=== PATIENT | female | born 1940 | race Caucasian/White ===

== ENCOUNTER 2020-05-07 11:57 | Inpatient (IN) | payer MEDICARE ==
[2020-05-07] MEDS ORDERED: PRINIVIL20 MG PO (12:15)
[2020-05-07] MEDS ORDERED: AMLODIPINE BESY10 MG PO (12:15)
[2020-05-07] MEDS ORDERED: OMEGA-31000 MG PO (12:15)
[2020-05-07] MEDS ORDERED: PIOGLITAZONE HC45 MG PO (12:15)
[2020-05-07] MEDS ORDERED: HYDROCHLOROTHIA25 MG PO (12:15)
[2020-05-07] MEDS ORDERED: MULTAQ 400MG T400 MG PO (12:15)
[2020-05-07 12:37] LABS: BASOPHILS % 0.5 % (0.0-1.0); EOSINOPHILS # (AUTO) 0.1 (0.0-0.4); EOSINOPHILS % 0.8 % (0.0-6.0); HEMATOCRIT 32.2 % (34.2-44.1); HEMOGLOBIN 10.1 g/dL (12.0-16.0); LYMPHOCYTES # (AUTO) 3.2 (1.0-3.2); LYMPHOCYTES % 47.9 % (18.0-39.1); MEAN CORPUSCULAR HGB CONC 31.4 g/dL (31-35); MEAN CORPUSCULAR VOLUME 92.5 fL (81-99); MONOCYTES # (AUTO) 0.5 (0.2-0.8); MONOCYTES % 6.9 % (4.4-11.3); NEUTROPHILS # (AUTO) 2.9 (2.1-6.9); NEUTROPHILS % 43.7 % (38.7-80.0); PLATELET COUNT 229 x10e3/uL (140-360); RED BLOOD COUNT 3.48 x10e6/uL (3.6-5.1); RED CELL DISTRIBUTION WIDTH 13.7 % (11.7-14.4)
[2020-05-07 12:59] LABS: ALBUMIN 3.4 g/dL (3.5-5.0); ALBUMIN/GLOBULIN RATIO 1.1 (0.8-2.0); ANION GAP 14.5 mmol/L (8-16); CALCIUM 9.1 mg/dL (8.4-10.2); CREATININE, SERUM 1.26 mg/dL (0.57-1.11); POTASSIUM 3.5 mmol/L (3.5-5.1)
[2020-05-07 13:06] LABS: CREATINE KINASE MB 1.5 ng/mL (0-5.0)
--- NOTE | 2020-05-07 13:17 | Diagnostic Imaging Report ---
Examination: CT head without contrast Clinical Indication: ^Y ^Weakness ^[id number] ^1240. Technique: Transaxial noncontrast images from the skull base through the vertex were obtained. Sagittal and coronal reformatted images were done. Dose modulation, iterative reconstruction, and/or weight based adjustment of the mA/kV was utilized to reduce the radiation dose to as low as reasonably achievable. Comparison: None. Findings: Scalp: No abnormalities. Bones: Intact. No fractures. No blastic or lytic lesions. Brain sulci: Moderate generalized volume loss for patient's age. Ventricles: Ex vacuo dilatation. No hydrocephalus. Extra-axial space: No abnormalities. Parenchyma: There are patchy areas of low-attenuation within subcortical and periventricular white matter, nonspecific, but could represent microvascular ischemic disease. No masses, hemorrhage, or acute or chronic cortical based vascular insults. Suprasellar region: No abnormalities. Craniocervical junction: The foramen magnum is patent. No Chiari one malformation. Incidental findings: Atherosclerotic calcification of the cavernous and supraclinoid internal carotid and V4 segments of the bilateral vertebral arteries. Impression: 1. No acute intracranial finding. 2. Generalized volume loss and chronic microvascular ischemic change. Signed by: Dr. Jayda Mead M.D. on 05/07/2020 1:14 PM
--- NOTE | 2020-05-07 13:35 | Emergency Department Note ---
History of Present Illnes History of Present Illness Chief Complaint: Neurological History of Present Illness This is a 79 year old female arrives to the ED after her assisted living facility noted left-sided upper and lower extremity weakness and patient difficulty ambulating. Patient with advanced dementia and history is limited. Son and daughter at bedside attests to left-sided weakness as well.. Chief Complaint Comment PATIENT IN FROM THE [place] FOR LEFT SIDED WEAKNESS; PER SON, PATIENT WOKE UP WITH THE LEFT SIDED WEAKNESS; STATES LAST SEEN NORMAL YESTERDAY, UNKNOWN ONSET. PATIENT WITH HISTORY OF DEMENTIA Historian: Patient, Family Member Arrival Mode: Car Onset (how long ago): hour(s) Severity: mild Onset quality: sudden Duration (how long): hour(s) Timing of current episode: unable to specify Progression: resolved Chronicity: new Context: Denies recent illness Relieving factors: none Exacerbating factors: none Associated symptoms: Reports denies other symptoms, Reports weakness; Denies fever/chills, Denies headaches, Denies loss of appetite, Denies malaise, Denies nausea/vomiting Past Medical/Family History Physician Review I have reviewed the patient's past medical and family history. Any updates have been documented here. Past Medical History Recent Fever: No Clinical Suspicion of Infectio: No New/Unexplained Change in Ment: No Past Medical History: Hypertension, Diabetes, Cancer, Other Mental Illness, Hyperlipedemia Other Medical History: DEMENTIA BREAST CANCER Past Surgical History: CABG Social History Smoking Cessation: Never Smoker Counseling Performed: No Alcohol Use: None Any Illegal Drug Use: No Review of Systems Review of Systems Constitutional: Reports no symptoms EENTM: Reports no symptoms Cardiovascular: Reports no symptoms Respiratory: Reports no symptoms Gastrointestinal: Reports no symptoms Genitourinary: Reports no symptoms Musculoskeletal: Reports no symptoms Integumentary: Reports no symptoms Neurological: Reports as per HPI, Reports weakness Psychological: Reports no symptoms Endocrine: Reports no symptoms Hematological/Lymphatic: Reports no symptoms Physical Exam Related Data Allergies: Coded Allergies: No Known Allergies (Unverified , 05/07/20) Triage Vital Signs Vital Signs Date Time Temp Pulse Resp B/P (MAP) Pulse Ox O2 Delivery O2 Flow Rate FiO2 05/07/20 12:03 98.1 70 20 208/68 98 Room Air Vital signs reviewed: Yes Physical Exam CONSTITUTIONAL Constitutional: Present well-developed, Present well-nourished HENT HENT: Present normocephalic, Present atraumatic, Present oropharynx clear/moist, Present nose normal HENT L/R: Present left ext ear normal, Present right ext ear normal EYES Eyes: Reports PERRL, Reports conjunctivae normal NECK Neck: Present ROM normal PULMONARY Pulmonary: Present effort normal, Present breath sounds normal CARDIOVASCULAR Cardiovascular: Present regular rhythm, Present heart sounds normal, Present capillary refill normal, Present normal rate GASTROINTESTINAL Abdominal: Present soft, Present nontender, Present bowel sounds normal GENITOURINARY Genitourinary: Present exam deferred SKIN Skin: Present warm, Present dry MUSCULOSKELETAL Musculoskeletal: Present ROM normal NEUROLOGICAL Neurological: Present alert, Present no gross motor or sensory deficits PSYCHOLOGICAL Psychological: Present mood/affect normal, Present judgement normal Results Laboratory Result Diagram: 05/07/20 1224 05/07/20 1224 Laboratory Laboratory Tests Test 05/07/20 12:24 White Blood Count 6.66 x10e3/uL (4.8-10.8) Red Blood Count 3.48 x10e6/uL (3.6-5.1) Hemoglobin 10.1 g/dL (12.0-16.0) Hematocrit 32.2 % (34.2-44.1) Mean Corpuscular Volume 92.5 fL (81-99) Mean Corpuscular Hemoglobin 29.0 pg (28-32) Mean Corpuscular Hemoglobin Concent 31.4 g/dL (31-35) Red Cell Distribution Width 13.7 % (11.7-14.4) Platelet Count 229 x10e3/uL (140-360) Neutrophils (%) (Auto) 43.7 % (38.7-80.0) Lymphocytes (%) (Auto) 47.9 % (18.0-39.1) Monocytes (%) (Auto) 6.9 % (4.4-11.3) Eosinophils (%) (Auto) 0.8 % (0.0-6.0) Basophils (%) (Auto) 0.5 % (0.0-1.0) Neutrophils # (Auto) 2.9 (2.1-6.9) Lymphocytes # (Auto) 3.2 (1.0-3.2) Monocytes # (Auto) 0.5 (0.2-0.8) Eosinophils # (Auto) 0.1 (0.0-0.4) Basophils # (Auto) 0.0 (0.0-0.1) Absolute Immature Granulocyte (auto 0.01 x10e3/uL (0-0.1) Sodium Level 143 mmol/L (136-145) Potassium Level 3.5 mmol/L (3.5-5.1) Chloride Level 103 mmol/L (98-107) Carbon Dioxide Level 29 mmol/L (22-29) Anion Gap 14.5 mmol/L (8-16) Blood Urea Nitrogen 35 mg/dL (7-26) Creatinine 1.26 mg/dL (0.57-1.11) Estimat Glomerular Filtration Rate 41 ML/MIN (60-) BUN/Creatinine Ratio 28 (6-25) Glucose Level 114 mg/dL (74-118) Calcium Level 9.1 mg/dL (8.4-10.2) Total Bilirubin 0.2 mg/dL (0.2-1.2) Aspartate Amino Transf (AST/SGOT) 16 IU/L (5-34) Alanine Aminotransferase (ALT/SGPT) 9 IU/L (0-55) Alkaline Phosphatase 30 IU/L (40-150) Creatine Kinase 123 IU/L (29-168) Creatine Kinase MB 1.50 ng/mL (0-5.0) Troponin I 0.150 ng/mL (0-0.300) Total Protein 6.4 g/dL (6.5-8.1) Albumin 3.4 g/dL (3.5-5.0) Globulin 3.0 g/dL (2.3-3.5) Albumin/Globulin Ratio 1.1 (0.8-2.0) Lab results reviewed: Yes Imaging Imaging results reviewed: Yes Impressions Impression: 1. No acute intracranial finding. 2. Generalized volume loss and chronic microvascular ischemic change. Signed by: Dr. Jayda Mead M.D. on 05/07/2020 1:14 PM Clinical Decision Tools NIH Stroke Scale Interval: baselline NIH Stroke Score: NIH Stroke Score Response (Comments) Value Level of Consciousness Alert, Keenly Responsive 0 Level of Consciousness Questions Answers Both Correctly 0 Level of Consciousness Commands Performs Both Tasks 0 Lateral Gaze Paresis Normal 0 Visual Field Loss No Visual Loss 0 Facial Palsy Normal Symmetrical Move 0 Motor Left Arm No Drift, Arm Stays 45/90 0 Motor Right Arm No Drift, Arm Stays 45/90 0 Motor Left Leg No Drift, Arm Stays 45/90 0 Motor Right Leg No Drift, Arm Stays 45/90 0 Limb Ataxia Absent 0 Sensory Loss Normal 0 Language Aphasia No Aphasia, Normal 0 Dysarthria Normal 0 Extinction and Inattention No Abnormality 0 Total 0 Baseline increased by 4: No Assessment & Plan Medical Decision Making MDM 79-year-old female arrives to the ED with left-sided upper and lower extremity weakness at the [facility]. Patient with no neuro deficits here and there is no indications for TPA at this time. Patient admitted for cardiac and neurologic optimization. Assessment & Plan Final Impression: (1) TIA (transient ischemic attack) Depart Disposition: ADMITTED Last Vital Signs Date Time Temp Pulse Resp B/P (MAP) Pulse Ox O2 Delivery O2 Flow Rate FiO2 05/07/20 13:24 71 16 185/60 100 Room Air 05/07/20 12:03 98.1 Home Meds Reported Medications Dronedarone* (MULTAQ 400MG TABLETS*) 400 Mg Tab, 400 MG PO BID, TAB 05/07/20 [place]-3 Fatty Acids (OMEGA-3) 1,000 Mg Capsule, 2 CAP PO DAILY 05/07/20 Amlodipine Besylate (AMLODIPINE BESYLATE) 10 Mg Tablet, 10 MG PO DAILY, #30 TAB 05/07/20 Pioglitazone Hcl (PIOGLITAZONE HCL) 45 Mg Tablet, 45 MG PO DAILY, #30 TAB 05/07/20 Hydrochlorothiazide (HYDROCHLOROTHIAZIDE) 25 Mg Tablet, 12.5 MG PO DAILY, #30 TAB 05/07/20 Lisinopril (PRINIVIL) 20 Mg Tablet, 20 MG PO DAILY, #30 TAB 05/07/20 TOLU RODRÍGUEZ DO May 07, 2020 13:35
[2020-05-07] MEDS ORDERED: RISPERIDONE 0.5 MG TAB PO PRN (15:30)
[2020-05-07] MEDS ORDERED: TRAZODONE HCL 50 MG TAB PO PRN (15:45)
[2020-05-07] MEDS ORDERED: SODIUM CHLORIDE 0.45% 1,000 ML IV ONE (15:45)
[2020-05-07 16:00] VITALS: BP 223/66
--- NOTE | 2020-05-07 16:17 | Consultation ---
DATE OF CONSULTATION: Pulmonary Critical Care Consultation CHIEF COMPLAINT: Transient hemiparesis. HISTORY OF PRESENT ILLNESS: The patient is an 79-year-old woman. She has a history of temporal frontal dementia that was diagnosed during the hospitalization in 2017. She also has history of diabetes and hypertension. This morning for several hours, she had some left-sided arm and leg weakness and an abnormal gait. It resolved spontaneously after several hours. The patient came to the emergency department. Her CT scan of her head was negative. She now feeling better. She is not complaining of headache. PAST MEDICAL HISTORY: 1. Hypertension. 2. Diabetes. 3. Dementia. PAST SURGICAL HISTORY: 1. Coronary artery bypass grafting. 2. History of breast cancer. SOCIAL HISTORY: The patient never smoked. The patient is not a drinker. FAMILY HISTORY: Noncontributory. ALLERGIES: NO KNOWN DRUG ALLERGIES. REVIEW OF SYSTEMS: The patient has some confusion that is her baseline. She is afebrile. She has no neck pain. She is not complaining of chest pain or dyspnea. She has no cough. She is not complaining of any abdominal pain. There is no nausea or vomiting. She did have some transient left-sided weakness as resolved. PHYSICAL EXAMINATION: VITAL SIGNS: Blood pressure is 185/60, saturation is 100% and the pulse is 71. HEENT: Shows no facial swelling or erythema. LYMPHATIC: Shows no submandibular, cervical, or supraclavicular adenopathy. CARDIAC: Reveals a regular rate and rhythm with normal S1, S2. LUNGS: Auscultation of lungs reveals decreased breath sounds at the bases. There is no wheezing. ABDOMEN: Soft, nontender. There is no rebound or guarding. EXTREMITIES: Shows no leg edema or calf tenderness. There is no cyanosis or clubbing. SKIN: Shows no rashes. NEUROLOGICAL: Shows no focal abnormalities. She does have some forgetfulness. LABORATORY DATA: BUN to creatinine ratio is 35 to 1.26. Other electrolytes within normal limits. White blood cell count is 6.6 and hemoglobin is 10.1. The platelet count is 229. RADIOGRAPHIC DATA: Chest x-ray shows no acute abnormalities. Head CT shows no acute abnormalities. IMPRESSION: 1. Transient ischemic attack with left-sided weakness. 2. Temporal lobe dementia. 3. Chronic renal insufficiency, stage 3. 4. Anemia, unspecified. 5. Hypertension. 6. Diabetes. PLAN: 1. The patient will have a cardiac ultrasound as well as a carotid duplex. 2. Begin Plavix. 3. Continue prior blood pressure medications and monitoring for diabetes. 4. Judicious use of IV fluids. 5. Plavix. MD ANUP Smith/[facility] /[id number]
--- NOTE | 2020-05-07 18:30 | NUR ---
pt combative. pulled IV and telemetry . waiting for pt's family to come and sit with her . will reinsert iv and reapply telemetry . when family is here .
[2020-05-07] MEDS: DRONEDARONE 400 MG TAB PO SCH (18:33)
--- NOTE | 2020-05-07 19:00 | NUR ---
RECEIVED PATIENT IN BEDSIDE SHIFT REPORT. PATIENT RESTING IN BED AT THIS TIME, NOT COMBATIVE, BUT AGITATED. FAMILY MEMBER WENT HOME TO GATHER SOME THINGS AND IS COMING BACK. BED ALARM PLACED ON PATIENT. PATIENT STATES "ONE WAY OR ANOTHER, I AM GOING HOME TOMORROW." ATTEMPTED TO EXPLAIN NEEDED TESTS, BUT PATIENT CONTINUES TO SAY THIS. WILL MONITOR CLOSELY.
[2020-05-07 19:30] VITALS: BP 191/64
--- NOTE | 2020-05-07 19:30 | NUR ---
PATIENT SON BACK AT BEDSIDE. PATIENT AGREED TO WEAR TELE MONITOR AT THIS TIME. CHANGED PATIENT INTO GOWN AND MESH UNDERWEAR. PATIENT CALM AT THIS TIME. WILL CONTINUE TO MONITOR.
[2020-05-07] MEDS ORDERED: ONDANSETRON HCL INJ 2MG/ML 2ML 2 MG/ML VIAL IV PRN (21:45)
[2020-05-07] MEDS ORDERED: ACETAMINOPHEN 325 MG TAB PO PRN (21:45)
[2020-05-07] MEDS ORDERED: DEXTROSE 50% SYRINGE 50 ML IV PRN (21:45)
[2020-05-07] MEDS ORDERED: HYDRALAZINE HCL 20 MG/ML VIAL IV PRN (21:45)
--- NOTE | 2020-05-07 21:45 | NUR ---
UNABLE TO ATTAIN IV ACCESS. INFORMED JOURDAN WEDDING FLORIST. NO ORDERS TO CHANGE IV MEDICATION TO ORAL, BUT OKAY TO GIVE AND UNSCHEDULED DOSE OF PATIENT'S HOME MEDICATIONS TONIGHT.
[2020-05-07] MEDS: LISINOPRIL 20 MG TAB PO SCH (21:50)
[2020-05-08] VITALS (13 sets, daily range): BP systolic 140–214; BP diastolic 50–61
--- NOTE | 2020-05-08 00:09 | NUR ---
PATIENT SLEEPING AT THIS TIME, AND FAMILY MEMBER REQUESTS WE NOT WAKE HER UP FOR VITALS, SHE HAS BEEN AGITATED ALL DAY. WILL GET VITALS WHEN PATIENT WAKES UP.
--- NOTE | 2020-05-08 06:15 | NUR ---
PATIENT IN A BETTER MOOD AND STATED SHE WOULD ALLOW AN IV PLACED. NEW IV ACCESS TO R FA 22G. RESTARTED IV FLUIDS AT THIS TIME.
[2020-05-08 06:42] LABS: BASOPHILS % 0.6 % (0.0-1.0); EOSINOPHILS # (AUTO) 0.1 (0.0-0.4); EOSINOPHILS % 1.7 % (0.0-6.0); HEMATOCRIT 31.5 % (34.2-44.1); HEMOGLOBIN 9.9 g/dL (12.0-16.0); LYMPHOCYTES # (AUTO) 2.8 (1.0-3.2); LYMPHOCYTES % 53.2 % (18.0-39.1); MEAN CORPUSCULAR HEMOGLOBIN 29.5 pg (28-32); MEAN CORPUSCULAR HGB CONC 31.4 g/dL (31-35); MEAN CORPUSCULAR VOLUME 93.8 fL (81-99); MONOCYTES # (AUTO) 0.4 (0.2-0.8); MONOCYTES % 7.3 % (4.4-11.3); NEUTROPHILS # (AUTO) 1.9 (2.1-6.9); PLATELET COUNT 229 x10e3/uL (140-360); RED BLOOD COUNT 3.36 x10e6/uL (3.6-5.1); RED CELL DISTRIBUTION WIDTH 13.7 % (11.7-14.4)
--- NOTE | 2020-05-08 07:00 | NUR ---
BEDSIDE SHIFT REPORT RECEIVED FROM THE BIBLICAL LANGUAGES PROFESSOR RN. PT IS AAOX1 PER THE REPORT. SON AT BEDSIDE. CALL LIGHT WITH IN EASY REACH. BED IS LOW AND LOCKED. SIDE RAILS X2. BED ALARM IS ON. PT AND SON AT BEDSIDE DENIES NEEDS AT THIS TIME.
[2020-05-08 07:02] LABS: ALBUMIN 3.1 g/dL (3.5-5.0); ALBUMIN/GLOBULIN RATIO 1.1 (0.8-2.0); ANION GAP 12.2 mmol/L (8-16); CALCIUM 8.5 mg/dL (8.4-10.2); CREATININE, SERUM 1.09 mg/dL (0.57-1.11); POTASSIUM 3.2 mmol/L (3.5-5.1)
[2020-05-08 07:14] LABS: CHOL/HDL RATIO 2.9 (3.0-3.6)
[2020-05-08] MEDS: INSULIN LISPRO 100 UNIT/1 ML 3ML VIAL SQ SCH ×4 (07:30→21:00)
--- NOTE | 2020-05-08 07:30 | NUR ---
PAGED RADIOLOGY AND ECHO REGARDING STAT MRI, ECHO AND CAROTID DOPPLER ORDERS
[2020-05-08 07:35] LABS: THYROID STIMULATING HORMONE 0.736 uIU/mL (0.350-4.940)
--- NOTE | 2020-05-08 07:50 | NUR ---
PAGEJesenia JONES NP AND REPORTED K LEVEL 3.2
--- NOTE | 2020-05-08 08:20 | NUR ---
PAGED TELE AND CHECKED HR AND RHYTHM. SR @67 WITH BBB PER TELE
--- NOTE | 2020-05-08 08:25 | NUR ---
PRODUCTION LINE WORKER AT BEDSIDE.
[2020-05-08] MEDS: FAMOTIDINE 20 MG TAB PO SCH ×2 (08:28→16:33)
[2020-05-08] MEDS: DRONEDARONE 400 MG TAB PO SCH ×2 (08:29→18:00)
[2020-05-08] MEDS: ASPIRIN 81 MG CHEW TAB PO SCH (08:29)
[2020-05-08] MEDS: OMEGA 3 POLYUNSAT FATTY ACIDS 1000 MG SOFTGEL PO SCH (08:30)
[2020-05-08] MEDS: LISINOPRIL 20 MG TAB PO SCH (08:30)
[2020-05-08] MEDS: CLOPIDOGREL BISULFATE 75 MG TAB PO SCH (08:37)
[2020-05-08] MEDS ORDERED: LORAZEPAM INJ 2 MG/ML VIAL IV ONE (09:00)
[2020-05-08] MEDS ORDERED: AMLODIPINE BESYLATE 10 MG TAB PO SCH (09:00)
--- NOTE | 2020-05-08 09:00 | NUR ---
PT REFUSED TO TAKE VITAL SIGNS. PT IS AGITATED. SON AT BEDSIDE.
--- NOTE | 2020-05-08 09:12 | NUR ---
PT OFF UNIT FOR MRI IN SAFE CONDITION.
--- NOTE | 2020-05-08 09:55 | NUR ---
PT IS BACK TO THE UNIT AFTER MRI. CAROTID DOPPLER TECH AT BEDSIDE.
--- NOTE | 2020-05-08 10:07 | Diagnostic Imaging Report ---
MRI BRAIN WO HISTORY: Concern for CVA, confused with left-sided weakness COMPARISON: Head CT 05/07/2020 TECHNIQUE: Sagittal T2, axial T2, multiplanar 3-D T1, axial T2/FLAIR, axial gradient echo (or susceptibility weighted), and axial diffusion weighted MR images of the brain were obtained without contrast. Motion artifacts obscure some details. DISCUSSION: Scalp/bone marrow: Unremarkable. Brain sulci: Overall mildly prominent. There is associated mildly disproportionate volume loss along the mesial temporal lobes, left greater than right. Ventricles: Mild to moderate supratentorial ventriculomegaly is slightly out of proportion to sulcal prominence. The temporal horns are dilated. The fourth ventricle an cerebral aqueduct are unremarkable. Extra-axial spaces: No masses or fluid collections. Parenchyma: A few scattered T2/FLAIR hyperintense foci throughout the supratentorial white matter are likely chronic microvascular ischemic changes. Otherwise, no mass, hemorrhage, or acute vascular insults. Vessels: Normal flow voids in major arteries and veins. Sellar/Suprasellar region: No abnormalities. Craniocervical junction: No abnormalities. Incidental findings: None. IMPRESSION: Motion artifacts obscure some details. In spite of limitations: 1. Mild to moderate supratentorial ventriculomegaly is slightly out of proportion to sulcal prominence. Correlate for communicating hydrocephalus (i.e. normal pressure hydrocephalus in the appropriate clinical setting). 2. Otherwise, no acute intracranial abnormalities. 3. Mild supratentorial chronic microvascular ischemic change. 4. Mild generalized cerebral volume loss, slightly accentuated along the bilateral mesial temporal lobes (left greater than right). This could be seen in Alzheimer's disease. Signed by: Dr. Maged Wise M.D. on 05/08/2020 10:03 AM
--- NOTE | 2020-05-08 10:24 | NUR ---
OBS DAY 1. DX: TIA SENT TO R1 FOR LOC DETERMINATION
[2020-05-08] MEDS: HYDROCHLOROTHIAZIDE 25 MG TAB PO SCH (11:28)
[2020-05-08] MEDS ORDERED: POTASSIUM CHLORIDE 20 MEQ TAB CR PO ONE (11:30)
--- NOTE | 2020-05-08 12:32 | NUR ---
R1 LOC DETERMINATION: [facility] case account ending in 4378 has been reviewed and completed by [facility] Physicians. Service Line: Level of Care (LOC) / Admission Status Review Initial patient type was submitted as: IO - Initial Observation PAS Recommendation: OU
--- NOTE | 2020-05-08 12:34 | NUR ---
DISCUSSED DC PLAN Sarika JONES. STATES THE PT IS VERY CONFUSED NOW AND MAY NEED PLACEMENT. STATES THE SON IS AT THE BEDSIDE AND IS CONSIDERING LOCKED UNIT VS RETIREMENT PLACEMENT. PT TO EVAL PT AND MAKE RECOMMENDATION. WILL CONT TO FOLLOW.
--- NOTE | 2020-05-08 15:35 | NUR ---
HOME HEALTH DISCHARGE NOTE PATIENT ADDRESS WHERE SERVICE WILL BE RECEIVED: [facility] PATIENT CONTACT NUMBER: [phone] NAME OF HOME HEALTH COMPANY: [facility] TELEPHONE/FAX NUMBER OF COMPANY: OFF: [phone] / FAX: [phone] SERVICES TO RECEIVE: SN/PT EVAL AND TREAT, HOME HEALTH AIDE ANTICIPATED DATE SERVICES WILL BEGIN: WITHIN 3 DAYS OF DC Please call the company above if you have not received a call to schedule a home visit within 24 hours of discharge. Addendum: 05/08/20 at 1549 by Geraldine Randall CM WALKER PROVIDED TO PT.
[2020-05-08] MEDS ORDERED: NIFEDIPINE CR 30 MG TAB PO ONE (17:00)
--- NOTE | 2020-05-08 17:00 | NUR ---
Min-CGA necessary to prevent patient from tripping and falling in the room due to decreased cognition. No skilled need at this time. Safe to ambulate with family or nursing staff in the hallway. D/C PT services. Addendum: 05/08/20 at 2658 by Sanket Grewal PT Amended: Links added.
--- NOTE | 2020-05-08 17:45 | NUR ---
RECHECKED PT BP. 216/56 HR 67 NOTED. CORRINE JONES NP AND REPORTED THE SAME.
--- NOTE | 2020-05-08 18:15 | NUR ---
PAGED LAB REGARDING STAT BNP AND TROPONIN
--- NOTE | 2020-05-08 18:22 | NUR ---
PAGED DR. GRAY OFFICE REGARDING NEW CONSULT.
[2020-05-08] MEDS: CLONIDINE HCL 0.1 MG TAB PO SCH (18:24)
--- NOTE | 2020-05-08 18:45 | NUR ---
BEDSIDE SHIFT REPORT GIVEN TO THE LEAN PROCESS DEPLOYMENT CONSULTANT RN. PT DENIED FURTHER NEEDS. SON AT BEDSIDE.
--- NOTE | 2020-05-08 18:50 | NUR ---
BLOOD GIVEN TO THE LAB FOR STAT TROPONIN AND BNP.
[2020-05-09] VITALS (10 sets, daily range): BP systolic 130–198; BP diastolic 43–63
--- NOTE | 2020-05-09 06:55 | NUR ---
BEDSIDE REPORT GIVEN. SON AT BEDSIDE.
[2020-05-09 07:15] LABS: BASOPHILS % 0.4 % (0.0-1.0); EOSINOPHILS # (AUTO) 0.1 (0.0-0.4); EOSINOPHILS % 2.1 % (0.0-6.0); HEMATOCRIT 33.6 % (34.2-44.1); HEMOGLOBIN 10.6 g/dL (12.0-16.0); LYMPHOCYTES # (AUTO) 2.7 (1.0-3.2); LYMPHOCYTES % 50.5 % (18.0-39.1); MEAN CORPUSCULAR HEMOGLOBIN 29.2 pg (28-32); MEAN CORPUSCULAR HGB CONC 31.5 g/dL (31-35); MEAN CORPUSCULAR VOLUME 92.6 fL (81-99); MONOCYTES # (AUTO) 0.5 (0.2-0.8); MONOCYTES % 8.6 % (4.4-11.3); NEUTROPHILS % 38.2 % (38.7-80.0); PLATELET COUNT 223 x10e3/uL (140-360); RED BLOOD COUNT 3.63 x10e6/uL (3.6-5.1); RED CELL DISTRIBUTION WIDTH 13.6 % (11.7-14.4)
[2020-05-09] MEDS: INSULIN LISPRO 100 UNIT/1 ML 3ML VIAL SQ SCH ×4 (07:30→21:00)
[2020-05-09] MEDS: FAMOTIDINE 20 MG TAB PO SCH ×2 (07:30→17:43)
[2020-05-09 07:44] LABS: ALBUMIN 3.1 g/dL (3.5-5.0); ALBUMIN/GLOBULIN RATIO 1.1 (0.8-2.0); ANION GAP 12.4 mmol/L (8-16); CALCIUM 8.6 mg/dL (8.4-10.2); CREATININE, SERUM 1.11 mg/dL (0.57-1.11); POTASSIUM 3.4 mmol/L (3.5-5.1)
[2020-05-09] MEDS: LISINOPRIL 20 MG TAB PO SCH (09:00)
[2020-05-09] MEDS: HYDROCHLOROTHIAZIDE 25 MG TAB PO SCH (09:00)
[2020-05-09] MEDS: OMEGA 3 POLYUNSAT FATTY ACIDS 1000 MG SOFTGEL PO SCH (09:00)
[2020-05-09] MEDS: NIFEDIPINE CR 30 MG TAB PO SCH ×2 (09:00→17:44)
[2020-05-09] MEDS: DRONEDARONE 400 MG TAB PO SCH ×2 (09:00→17:43)
[2020-05-09] MEDS: CLOPIDOGREL BISULFATE 75 MG TAB PO SCH (09:00)
[2020-05-09] MEDS ORDERED: POTASSIUM CHLORIDE 20 MEQ TAB CR PO ONE (11:30)
[2020-05-09] MEDS: CLONIDINE HCL 0.1 MG TAB PO SCH ×2 (11:55→17:43)
[2020-05-09] MEDS: ASPIRIN 81 MG CHEW TAB PO SCH (11:55)
--- NOTE | 2020-05-09 12:30 | NUR ---
DR PAYNE IN EARLIER NEW ORDER RECEIVED AND CARRIED OUT.
--- NOTE | 2020-05-09 13:15 | Consultation ---
DATE OF CONSULTATION: 05/08/2020 Nephrology Consultation REASON FOR CONSULTATION: 1. Chronic kidney disease, stage 3. 2. Hypertension. HISTORY OF PRESENT ILLNESS: This is an 79-year-old woman suffering from temporal frontal dementia and resides at a long care facility. She has known diabetes, hypertension, and chronic kidney disease, stage 3. She saw Dr. Braden in the office more than 6 months ago. She was admitted to the hospital 2 days ago with a TIA, which has since resolved. However, the patient remains disoriented and confused. According to her son at bedside, her mental status has deteriorated over the last few weeks to the point that he feels she will now require full-time care. Her admission creatinine was 1.26, which seems to have responded to IV fluids and is down to 1.1 this morning. Her blood pressure on admission was very high, and this is being presently addressed with the addition of some new blood pressure medications including hydrochlorothiazide. Her BP has been somewhat variable in the last 24 hours. The patient remains pleasantly confused, and is unable to give any history. According to son, he has been incontinent of urine in the hospital. He denies observing any chest pain, shortness of breath, nausea, vomiting, diarrhea, abdominal or flank pain, gross hematuria, or dysuria. No recent fever or chills. PAST MEDICAL HISTORY: As noted in HPI above. PAST SURGICAL HISTORY: 1. Breast cancer. 2. Coronary artery bypass grafting. SOCIAL HISTORY: The patient does not drink alcohol. Never smoked. FAMILY HISTORY: Noncontributory. CURRENT MEDICATIONS: Reviewed in MAR. REVIEW OF SYSTEMS: Negative except as noted above in HPI. She did have left-sided body weakness on admission, which has resolved. PHYSICAL EXAMINATION: GENERAL: The patient appears in no acute distress. Unable to tell where she is or the name of her son in the room. VITAL SIGNS: Blood pressure 155/47, pulse 52 per minute, respiration 18 per minute. She is afebrile. Oxygen saturation 98% on room air. SKIN: Normal turgor. No generalized lesions. HEENT: Normocephalic, atraumatic head. External ocular movements are intact. Sclerae are anicteric. Oral mucosa looks fine. NECK: Supple without jugular venous distention. CHEST: Auscultation anterolaterally reveals clear lungs without wheezing or crepitations. CARDIOVASCULAR: Normal S1, S2 without rub or gallop. ABDOMEN: Soft, depressible, nontender, nondistended. EXTREMITIES: Without pitting edema or cyanosis. NEUROLOGICAL: Confused. Able to move all four extremities normally upon command. IMAGING: Chest x-ray reportedly clear. LABORATORY DATA: Hemoglobin 10.6, normal white count and platelets. Serum chemistries from this morning show a creatinine of 1.1, BUN 19, EGFR 47, glucose 94, potassium 3.4, bicarb 28, sodium 139, calcium 8.6, albumin 3.1. BNP yesterday was 911. I do not see a urinalysis in the chart. IMPRESSION: 1. Chronic kidney disease, stage 3, appears stable with improvement in the hospital with hydration. 2. Hypokalemia, likely secondary to hydrochlorothiazide and inadequate oral intake. 3. Hypertension, blood pressure medication being adjusted in the hospital. 4. Apparently, the patient had quit taking her BP medications at the facility recently. She still seems to have spikes of high blood pressure in the hospital. 5. Mild anemia, likely secondary to chronic kidney disease. 6. Diabetes mellitus. 7. Transient ischemic attack, symptoms have resolved. Placed on Plavix. RECOMMENDATIONS: 1. We will monitor blood pressure on current medications, some of which have been introduced in the hospital and may take more time to get into steady state. I will go ahead and discontinue the hydrochlorothiazide, whose risks of causing electrolyte abnormalities likely outweigh any benefits in this elderly patient with dementia. May continue with other blood pressure medications as present. Her goal BP would likely be around 140 to 145/85. 2. I have ordered oral potassium chloride 40 mEq to be given by mouth this morning. Repeat electrolytes and renal function tomorrow. 3. Her current hemoglobin is stable and simply needs to be monitored periodically. 4. I have informed her son about her relatively preserved renal function given her age. She will continue to need periodic Nephrology oversight as an outpatient. We will follow the patient in the hospital and recommend as needed. Mainly, she will need adjustment of blood pressure medication for optimal control. Avoid all known nephrotoxins, specially NSAIDs and IV iodine contrast as possible. Thank you for the opportunity to participate in her care. Harley Lang MD [facility] /[id number]
[2020-05-09] MEDS ORDERED: ONDANSETRON HCL 4 MG ORAL DISINTEGRATING TAB PO PRN (14:00)
--- NOTE | 2020-05-09 18:30 | NUR ---
NO CHANGE IN PT STATUS; DAUGHTER AT PT BEDSIDE.
--- NOTE | 2020-05-10 00:57 | Progress Note ---
DATE: CONSULTING PHYSICIANS: Dr. Brandyn Fay with Pulmonology and Dr. Golden Braden with Nephrology. SUBJECTIVE: The patient's daughter, Judith, is at the bedside. Reports that the patient has had poor appetite with significant weight loss over the past two years. But the patient has been out of bed with bathroom privileges today and has not been having left-sided weakness. Her blood pressure 152/55, this evening, which is very elevated per the daughter, but much improved when the patient arrived. Per the daughter, the dementia/mental status is at baseline. Last bowel movement unknown. OBJECTIVE: VITAL SIGNS: Temperature 97.4, pulse 52, blood pressure 155/47, respirations 18, and oxygen saturation 98% on room air. GENERAL: Supine on the right side. No acute distress. LUNGS: Clear to auscultation. Respirations even and nonlabored. No supplemental oxygen. HEENT: EOMI. NECK: Supple. CARDIOVASCULAR: Regular rate and rhythm with no murmur. ABDOMEN: Bowel sounds positive. Soft and nontender. EXTREMITIES: No pitting edema. No clubbing, cyanosis, or signs of DVT. NEUROLOGICAL: The patient is asleep. GCS 13, eye 3, verbal 4, and motor 6. LABORATORY DATA: WBC 5.33, hemoglobin 10.6, hematocrit 33.6, platelets 223, neutrophils 38.2%. Sodium 139, potassium 3.4, chloride 102, CO2 28, BUN 21 and creatinine 1.11, estimated GFR 47, glucose 94. Fingerstick blood glucose levels 89, 104, 101, calcium 8.6, total bilirubin 0.4, AST is 17, ALT 9, alkaline phosphatase 27, total protein 5.8, albumin 3.1. Coronavirus PCR collected on05/[address] of the brain done on 05/07, shows no acute intracranial finding. Generalized volume loss and chronic microvascular ischemic change. IMAGING/OTHER: On 05/08, preliminary echocardiogram report shows ejection fraction 45%. On 05/08, bilateral carotid Doppler ultrasound showed evidence of carotid disease without significant stenosis. On 05/08, brain MRI shows [id number] supratentorial ventriculomegaly, slightly out of proportion to sulcal prominence. Normal-pressure hydrocephalus in the appropriate clinical setting. Otherwise, no acute intracranial abnormalities. Mild supratentorial chronic microvascular ischemic change. Mild generalized cerebral volume loss slightly accentuated along the bilateral mesial temporal lobes, left greater than right. ASSESSMENT AND PLAN: 1. Transient ischemic attack with left-sided hemiparesis, overall significantly improved. Continue Plavix. Echocardiogram, carotid Doppler ultrasound and MRI results as above. 2. Uncontrolled hypertension with chronic kidney disease, stage 3. Continue lisinopril 20 mg daily, hydrochlorothiazide 12.5 mg daily, nifedipine 30 mg b.i.d., and clonidine 0.1 mg b.i.d. Hydralazine is available p.r.n. for systolic blood pressure greater than 150. Some permissive hypertension seems appropriate, given recent transient ischemic attack .. 3. Acute hypokalemia with potassium level 3.4, 40 mEq of potassium chloride given once today per Nephrology. Appreciate recommendations. 4. Asymptomatic bradycardia with frequent premature ventricular contractions. Per telemetry, the patient is still having some premature ventricular contractions. Heart rate low at 52 this morning. Monitor. 5. Temporal lobe dementia. Supportive care. Continue risperidone. 6. Controlled type 2 diabetes mellitus. Fingerstick blood glucose levels within normal limits. Continue low-dose lispro insulin. Monitor fingerstick blood glucose levels. 7. Ambulatory dysfunction. Physical Therapy saw and evaluated the patient yesterday. The patient required minimal contact guard assist to prevent tripping and falling in the room due to decreased cognition. No skilled physical therapy services needed at this time per documentation. Safety ambulate with family or nursing staff in the hallway. PT services were discontinued. 8. Chronic kidney disease 3. BUN 21 and creatinine 1.11, estimated GFR 47. Nephrology following. 9. Anemia, likely due to chronic kidney disease 3. Hemoglobin 10.6. Monitor. 10. Prophylaxis. Pepcid, SCDs, ambulatory. DISPOSITION: The patient is a fpc resident at "[facility]." The patient will likely return there upon discharge. The patient was admitted on 05/07, admit the inpatient, billing code [id number], time spent 35 minutes. Dictated by Chirag Arthur NP Varun Temple MD HWP/MODL /[id number]
[2020-05-10 04:00] VITALS: BP 161/44
--- NOTE | 2020-05-10 06:15 | NUR ---
Called new consult for Dr. Shannan Palacios regarding low heart rate number called [phone]
[2020-05-10 06:38] LABS: BASOPHILS % 0.3 % (0.0-1.0); EOSINOPHILS # (AUTO) 0.1 (0.0-0.4); EOSINOPHILS % 1.9 % (0.0-6.0); LYMPHOCYTES # (AUTO) 3.4 (1.0-3.2); LYMPHOCYTES % 51.2 % (18.0-39.1); MEAN CORPUSCULAR HEMOGLOBIN 29.1 pg (28-32); MEAN CORPUSCULAR HGB CONC 31.4 g/dL (31-35); MEAN CORPUSCULAR VOLUME 92.6 fL (81-99); MONOCYTES # (AUTO) 0.4 (0.2-0.8); MONOCYTES % 6.4 % (4.4-11.3); NEUTROPHILS # (AUTO) 2.7 (2.1-6.9); NEUTROPHILS % 40.1 % (38.7-80.0); PLATELET COUNT 242 x10e3/uL (140-360); RED BLOOD COUNT 3.78 x10e6/uL (3.6-5.1); RED CELL DISTRIBUTION WIDTH 13.6 % (11.7-14.4)
[2020-05-10 07:00] LABS: MAGNESIUM 1.8 MG/DL (1.3-2.1); PHOSPHORUS 3.2 MG/DL (2.3-4.7)
--- NOTE | 2020-05-10 07:20 | NUR ---
PATIENT IN BED RESTING WITH EYES CLOSED, NO DISTRESS NOTED. TELEMETRY BOX [address] BED IN LOWER POSITION AND LOCKED. CALL LIGHT AT REACH, DAUGHTER AT BED SIDE.
[2020-05-10] MEDS: INSULIN LISPRO 100 UNIT/1 ML 3ML VIAL SQ SCH (07:30)
[2020-05-10] MEDS: FAMOTIDINE 20 MG TAB PO SCH (08:00)
[2020-05-10 08:30] VITALS: BP 171/44
--- NOTE | 2020-05-10 08:48 | Progress Note ---
DATE: 05/10/2020 Renal Progress Note SUBJECTIVE: Followed for chronic kidney disease, stage 3. Estimated GFR of 47, notes that was yesterday. No labs are available yet for today. No nausea, no vomiting, no shortness of breath at this time. OBJECTIVE: VITAL SIGNS: Stable. Blood pressure is 160s over 40s, pulse in the 50s, afebrile, 16 respirations. LUNGS: Clear to auscultation bilaterally. CARDIOVASCULAR: S1 and S2. No rub. ABDOMEN: Soft and nontender. EXTREMITIES: No edema. LABORATORY DATA: Creatinine yesterday was 1.1, potassium 3.4. IMAGING: No renal ultrasound has been done as yet. IMPRESSION AND PLAN: 1. Chronic kidney disease, stage 3, appears to be at baseline. Repeat labs in the morning and make further recommendations. 2. Hypertension. Blood pressure is slightly elevated, however, has not had her BP medications this morning. Continue to monitor closely and titrate up blood pressure medication as indicated. 3. Hypokalemia, has been replaced. Repeat magnesium level, today is normal. Rest of the chemistries are still pending. 4. We will follow the patient closely and make further recommendations. MD ANGELINE Genao/GINOL /[id number]
[2020-05-10] MEDS: CLONIDINE HCL 0.1 MG TAB PO SCH (09:00)
[2020-05-10] MEDS: NIFEDIPINE CR 30 MG TAB PO SCH (09:00)
[2020-05-10] MEDS ORDERED: MEGESTROL ACETATE 40 MG TAB PO SCH (09:00)
[2020-05-10] MEDS: ASPIRIN 81 MG CHEW TAB PO SCH (09:03)
[2020-05-10] MEDS: CLOPIDOGREL BISULFATE 75 MG TAB PO SCH (09:03)
[2020-05-10] MEDS: OMEGA 3 POLYUNSAT FATTY ACIDS 1000 MG SOFTGEL PO SCH (09:03)
[2020-05-10] MEDS: DRONEDARONE 400 MG TAB PO SCH (09:04)
[2020-05-10] MEDS: LISINOPRIL 20 MG TAB PO SCH (09:04)
[2020-05-10 09:45] VITALS: BP 171/44
--- NOTE | 2020-05-10 11:11 | NUR ---
SPOKE WITH SON ABOUT NEEDS AT THE FACILITY PT IS GOING TO, DISCUSSED PT NOTES WHERE SHE IS GOING 350 FT WITH ONLY CONTACT GUARD ASSIST. HOME HEALTH ALREADY SELECTED WITH [facility]. PT WILL DISCHARGE TO ASSISTED LIVING FACILITY AND SON SHOULD BE ABLE OT TAKE HER THERE.
--- NOTE | 2020-05-10 11:44 | NUR ---
PATIENT ASSISTED TO THE RESTROOM AND BACK TO BED. CALL LIGHT AT REACH, BED ALARM ACTIVATED. FAMILY MEMBER AT BED SIDE.
[2020-05-10 12:19] LABS: ANION GAP 18.1 mmol/L (8-16); CALCIUM 9.2 mg/dL (8.4-10.2); CREATININE, SERUM 1.33 mg/dL (0.57-1.11); POTASSIUM 4.1 mmol/L (3.5-5.1)
[2020-05-10] MEDS ORDERED: ELIQUIS2.5 MG PO (12:28)
[2020-05-10] MEDS ORDERED: LISINOPRIL20 MG PO (12:28)
[2020-05-10] MEDS ORDERED: Atorvastatin PO (12:28)
[2020-05-10] MEDS ORDERED: NIFEDIPINE ER30 M1 PO (12:28)
--- NOTE | 2020-05-10 13:05 | Consultation ---
DATE OF CONSULTATION: 05/10/2020 Cardiology Consultation. CONSULTING PHYSICIAN: Tra Quiroz MD REASON FOR CONSULTATION: Hypertension and TIA. HISTORY OF PRESENT ILLNESS: An 79-year-old woman with temporal dementia, hypertension, diabetes, [facility] resident, arrhythmia (suspect atrial fibrillation) on chronic dronedarone/Multaq therapy, history of breast cancer status post mastectomy, history of CAD, prior remote bypass, presents from [facility] for issues with blood pressure control and transient left-sided tingling, now resolved. CT head was remarkable for no acute abnormalities. Brain MRI remarkable for ventriculomegaly and volume loss in the temporal vessel lobes with microvascular chronic ischemic changes. Her carotid ultrasound was remarkable for less than 50% right ICA stenosis, and had echo for LVEF 55% to 60% with normalized LV filling, mild left ventricular hypertrophy. Behzadta intermittently declines her blood pressure medications. Son accompanies the patient today. There has not reported history of recent falls or bleeding issues. REVIEW OF SYSTEMS: A 12-system review negative except for as noted above. PAST MEDICAL HISTORY: As per HPI. 1. Hypertension. 2. Diabetes. 3. Dyslipidemia. 4. CAD. 5. History of breast cancer. 6. Dementia. SOCIAL HISTORY: No alcohol, smoking or drugs. FAMILY HISTORY: Noncontributory. PHYSICAL EXAMINATION: VITAL SIGNS: Temperature 98.4, heart rate 62, blood pressure 171/77, respiratory rate 18, O2 saturation 100%. GENERAL: No acute distress CHEST: Clear to auscultation. CARDIOVASCULAR: Regular rate and rhythm. Normal S1, S2. No S3 or S4 systolic ejection murmur. ABDOMEN: Soft. Bowel sounds positive. EXTREMITIES: No edema. CARDIOVASCULAR MEDICATIONS: Reviewed: 1. Lisinopril 20 mg daily. 2. Aspirin 81 mg daily. 3. Nifedipine 30 mg b.i.d. 4. Clopidogrel 75 mg daily. 5. Clonidine 0.1 mg b.i.d. Today, the patient declined. 6. Dronedarone 400 mg b.i.d. 7. Hydralazine 10 q.4 hours p.r.n. STUDIES: Reviewed: Sodium 139, potassium 3.4, chloride 102, bicarbonate 28, BUN 21, creatinine 1.1, glucose 94. White blood cell 6.7, hemoglobin 11, platelets 242. AST 17, ALT 9, alkaline phosphatase 27. Telemetry in sinus rhythm. TSH 0.53. BNP 911. Troponin I negative x2. Hemoglobin A1c 5.5, triglycerides 106, total cholesterol 212, LDL 118, HDL 73. ASSESSMENT AND PLAN: 1. An 79-year-old woman presents with transient ischemic attack, uncontrolled hypertension with mild LVH on echocardiogram. 2. Hypercholesterolemia. 3. Diabetes. 4. Temporal lobe dementia. 5. Transient ischemic attack. 6. Suspected atrial fibrillation, on chronic Multaq therapy. RECOMMENDATIONS: 1. Keep on telemetry while in-house. 2. Continue aspirin 81 mg daily. 3. Continue nifedipine 300 mg b.i.d. and up titrate lisinopril to 20 mg every 12 hours and discontinue clonidine. 4. Atorvastatin 40 mg at bedtime. 5. Initiate Eliquis 2.5 mg every 12 hours and discontinue clopidogrel for elevated CHADS-VASc score. Thank you for the opportunity to participate in the care of Ms. Dickerson. Please call with any questions [phone]. MD ELOISA Flores/EARL /[id number]
--- NOTE | 2020-05-10 13:30 | NUR ---
PATIENT DISCHARGED HOME. DISCHARGE INSTRUCTIONS, PRESCRIPTIONS ANF FOLLOW UP GIVEN TO PATIENT AND SON, THEY VERBALIZED UNDERSTANDING. ALL PERSONAL ITEMS TAKEN WITH PATIENT. LEFT UNIT PER WHEEL CHAIR TO FRONT LOBBY IN STABLE CONDITION.
--- NOTE | 2020-05-10 13:33 | NUR ---
EDUCATED ABOUT IMM, SIGNED, FILED IN CHART, WITH COPY LEFT WITH FAMILY AT BEDSIDE.
--- NOTE | 2020-05-10 14:09 | Diagnostic Imaging Report ---
EXAM: Renal Ultrasound INDICATION: ^eval size ^[id number] ^0910 COMPARISON: None TECHNIQUE: Transverse and longitudinal images of the kidneys and bladder were obtained. FINDINGS: Right Kidney: Length: 9.4 cm Appearance: Mildly increased echogenicity. Collecting system: No hydronephrosis Stones: None Cyst/Mass: None Left Kidney: Length: 7.7 cm Appearance: Mildly increased echogenicity. Collecting system: No hydronephrosis Stones: None Cyst/Mass: None Bladder: Bladder is decompressed. The ureteral jets are not confidently visualized. IMPRESSION: 1. Negative for hydronephrosis or perinephric fluid collection. 2. Medical renal disease. Signed by: Ag Corado MD on 05/10/2020 2:06 PM
--- NOTE | 2020-05-10 15:08 | NUR ---
Was informed by Carmen with [facility] that pt's son Brandon declined HH services. He stated pt will be going to the memory care unit at [facility] so she will not be needing HH.
[2020-05-10] MEDS ORDERED: LISINOPRIL 20 MG TAB PO SCH (21:00)
[2020-05-10] MEDS ORDERED: APIXAB 2.5 MG TABLET PO SCH (21:00)
[2020-05-11] MEDS ORDERED: ATORVASTATIN 40 MG TAB PO SCH (09:00)
--- OUTSIDE RECORDS SUMMARY | 2020-05-20 16:03 | XMS REPORT | Continuity of Care Document ---
Author Author [facility] t Organization [facility] Address [address] [place] [address] Phone Unavailable Care Team Providers Care [employer] Name Role Phone YUDY CARDOSO Attphys Unavailable YUDY CARDOSO Admjulius Unavailable Problems This patient has no known problems. Allergies, Adverse Reactions, Alerts This patient has no known allergies or adverse reactions. Medications This patient has no known medications. Procedures This patient has no known procedures. Results Test Description Test Time Test Comments Results Result Comments Source US RENAL RETROPERITONEAL COMP 2020-05-10 14:03:00 [facility] EMY LOWRY : 1940 Sex: F [facility] [address] [address] Patient Name: EMY LOWRY MR #: [id number] : 1940 Age/Sex: 79/F Req #: [id number] Adm Physician: YUDY CARDOSO MD Ordered by: ARIEL GRAY MD Report #: [id number] Location: MED/SURG3 Room/Bed: [facility] Procedure: [id number] US/US RENAL RETROPERITONEAL COMP Exam Date: 05/10/20 Exam Time: 912 REPORT STATUS: Signed EXAM: Renal Ultrasound INDICATION: eval size [id number] COMPARISON: None TECHNIQUE: Transverse and longitudinal images of the kidneys and bladder were obtained. FINDINGS: Right Kidney: Length: 9.4 cm Appearance: Mildly increased echogenicity. Collecting system: No hydronephrosis Stones: None Cyst/Mass: None Left Kidney: Length: 7.7 cm Appearance: Mildly increased echogenicity. Collecting system: No hydronephrosis Stones: None Cyst/Mass: None Bladder: Bladder is decompressed. The ureteral jets are not confidently visualized. IMPRESSION: 1. Negative for hydronephrosis or perinephric fluid collection. 2. Medical renal disease. Signed by: Estrella Corado MD on 05/10/2020 2:06 PM Dictated By: ESTRELLA CORADO MD 05 Transcribed By: AVERY on 05/10/201405 COPY TO: ARIEL GRAY MD MRI BRAIN WO 2020-05-08 09:53:00 [facility] 1940 Sex: [place] [address] [place] [address] Patient Name: EMY LOWRY MR #: [id number] : 1940 Age/Sex: 79/F Req #: [id number] Adm Physician: YUDY CARDOSO MD Ordered by: Rosio Stover NP Report #: [id number] Location: [facility] Room/Bed: [facility] Procedure: [id number] MRI/MRI BRAIN WO Exam Date: Exam Time: REPORT STATUS: Signed MRI BRAIN WO HISTORY: Concern for CVA, confused with left-sided weakness COMPARISON: Head CT 05/07/2020 TECHNIQUE: Sagittal T2, axial T2, multiplanar 3-D T1, axial T2/FLAIR, axial gradient echo (or susceptibility weighted), and axial diffusion weighted MR images of the brain were obtained without contrast. Motion artifacts obscure some details. DISCUSSION: Scalp/bone marrow: Unremarkable. Brain sulci: Overall mildly prominent. There is associated mildly disproportionate volume loss along the mesial temporal lobes, left greater than right. Ventricles: Mild to moderate supratentorial ventriculomegaly is slightly out of proportion to sulcal prominence. The temporal horns are dilated. The fourth ventricle an cerebral aqueduct are unremarkable. Extra-axial spaces: No masses or fluid collections. Parenchyma: A few scattered T2/FLAIR hyperintense foci throughout the supratentorial white matter are likely chronic microvascular ischemic changes. Otherwise, no mass, hemorrhage, or acute vascular insults. Vessels: Normal flow voids in major arteries and veins. Sellar/Suprasellar region: No abnormalities. Craniocervical junction: No abnormalities. Incidental findings: None. IMPRESSION: Motion artifacts obscure some details. In spite of limitations: 1. Mild to moderate supratentorial ventriculomegaly is slightly out of proportion to sulcal prominence. Correlate for communicating hydrocephalus (i.e. normal pressure hydrocephalus in the appropriate clinical setting). 2. Otherwise, no acute intracranial abnormalities. 3. Mild supratentorial chronic microvascular ischemic change. 4. Mild generalized cerebral volume loss, slightly accentuated along the bilateral mesial temporal lobes (left greater than right). This could be seen in Alzheimer's disease. Signed by: Dr. Maged Wise M.D. on 05/08/2020 10:03 AM Dictated By: MAGED WISE MD 02 Transcribed By: AVERY on 05/08/201002 COPY TO: ROSIO STOVER NP CT BRAIN WO 2020-05-07 13:13:00 [facility] CENTER[facility]: EMY LOWRY : 1940 Sex: F [place] [address] Patient Name: EMY LORWY MR #: [id number] : 1940 Age/Sex: 79/F Req #: [id number] [facility] Physician: Ordered by: TOLU RODRÍGUEZ DO Report #: [id number] Location: Room/Bed: Procedure: [id number] CT/CT BRAIN WO Exam Date: 05/07/20 Exam Time: 1240 REPORT STATUS: Signed Examination: CT head without contrast Clinical Indication: Y Weakness [id number] 1240. Technique: Transaxial noncontrast images from the skull base through the vertex were obtained. Sagittal and coronal reformatted images were done. Dose modulation, iterative reconstruction, and/or weight based adjustment of the mA/kV was utilized to reduce the radiation dose to as low as reasonably achievable. Comparison: None. Findings: Scalp: No abnormalities. Bones: Intact. No fractures. No blastic or lytic lesions. Brain sulci: Moderate generalized volume loss for patient's age. Ventricles: Ex vacuo dilatation. No hydrocephalus. Extra-axial space: No abnormalities. Parenchyma: There are patchy areas of low-attenuation within subcortical and periventricular white matter, nonspecific, but could represent microvascular ischemic disease. No masses, hemorrhage, or acute or chronic cortical based vascular insults. Suprasellar region: No abnormalities. Craniocervical junction: The foramen magnum is patent. No Chiari one malformation. Incidental findings: Atherosclerotic calcification of the cavernous and supraclinoid internal carotid and V4 segments of the bilateral vertebral arteries. Impression: 1. No acute intracranial finding. 2. Generalized volume loss and chronic microvascular ischemic change. Signed by: Dr. Jayda Mead M.D. on 05/07/2020 1:14 PM Dictated By: JAYDA ZAVALETA MD 1314 Transcribed By: AVERY on 05/07/20 1314 COPY TO: TOLU RODRÍGUEZ DO
--- OUTSIDE RECORDS SUMMARY | 2020-05-20 16:03 | XMS REPORT | Continuity of Care Document ---
Author Author [facility] t Organization [facility] Address [address] [place] [address] Phone Unavailable Care Team Providers Care [employer] Name Role Phone YUDY CARDOSO Attphys Unavailable YUDY CARDOSO Admjulius Unavailable Problems This patient has no known problems. Allergies, Adverse Reactions, Alerts This patient has no known allergies or adverse reactions. Medications This patient has no known medications. Procedures This patient has no known procedures. Results Test Description Test Time Test Comments Results Result Comments Source US RENAL RETROPERITONEAL COMP 2020-05-10 14:03:00 [facility]OW[facility] : 1940 Sex: F [facility] [address] [address] Patient Name: EMY LOWRY MR #: [id number] : 1940 Age/Sex: 79/F Req #: [id number] Adm Physician: YUDY CARDOSO MD Ordered by: ARIEL GRAY MD Report #: [id number] Location: MED/SURG3 Room/Bed: [facility] Procedure: [id number] US/US RENAL RETROPERITONEAL COMP Exam Date: 05/10/20 [...] MD MRI BRAIN WO 2020-05-08 09:53:00 [facility] 1940 Sex: [place] [address] [place] [address] Patient Name: EMY LOWRY MR #: [id number] : 1940 Age/Sex: 79/F Req #: [id number] Adm Physician: YUDY CARDOSO MD Ordered by: Rosio Stover NP Report #: [id number] Location: [facility] Room/Bed: [facility] Procedure: [id number] MRI/MRI BRAIN WO Exam Date: Exam Time: [...] NP CT BRAIN WO 2020-05-07 13:13:00 [facility] : 1940 Sex: [place] [address] [address] Patient Name: EMY LOWRY MR #: [id number] : 1940 Age/Sex: 79/F Req #: [id number] [facility] Physician: Ordered by: TOLU RODRÍGUEZ DO Report #: [id number] Location: Room/Bed: Procedure: [id number] CT/CT BRAIN WO Exam Date: 05/07/20 Exam Time: 1240 REPORT STATUS: Signed Examination: CT head without contrast Clinical Indication: Y Weakness [id number] 1240. Technique: Transaxial noncontrast images from the [...]
--- NOTE | 2020-05-21 13:34 | Discharge Summary ---
ADMISSION DIAGNOSES: Left hemiparesis, hypertensive emergency, dementia, hyperlipidemia, type 2 diabetes, frequent premature ventricular contraction, ambulatory dysfunction, hypokalemia. DISCHARGE DIAGNOSES: Left hemiparesis, hypertensive emergency, dementia, hyperlipidemia, type 2 diabetes, frequent premature ventricular contraction, ambulatory dysfunction, hypokalemia, rule out cerebrovascular accident, rule out coronavirus disease. HISTORY: Type 2 diabetes, hypertension, hyperlipidemia, dementia, breast cancer, and CKD 3. SURGICAL HISTORY: CABG x3 and radiation beads to her breast. FAMILY HISTORY: Unable to obtain. SOCIAL HISTORY: Noncontributory. HOSPITAL COURSE: An 79-year-old female, admitted from [facility] due to left arm and leg weakness that began yesterday morning after few hours. The symptoms resolved. The son is unsure if the patient has been taking her medicines. HPI and past medical history limited due to baseline dementia. Son has limited info on past medical history. According to the son, the patient gets along better with male, she gets very argumentative especially with females. On admission all imaging of the brain was negative. The patient has baseline CKD 3 and her renal ultrasound showed no hydronephrosis or perinephric fluid collection. Vital signs were stable. COVID was negative. Initially, we had trouble getting the patient's blood pressure under control. She would sometimes refuse medication, so she was discharged to a memory care unit with new prescriptions for Eliquis, Lipitor, lisinopril, q.12, and nifedipine b.i.d. She will follow up with primary care in 1 to 2 weeks. The patient and son understand discharge instructions and agreed to plan. Vital signs stable. The patient is afebrile. Dictated by Rosio Luna NP MD SADIQ Balderrama/MODL /[id number]
== END 2020-05-10 13:24 | disposition home or self-care (01) | DRG 65 ==
LOC: ER 12:25 → ERHOLD 12:31 → MED/SURG3 13:50 → OBSVTOIN 05-09 23:08
PROVIDERS: ADMIT Internal Medicine; ATTEND Internal Medicine
DX: I63.9 Cerebral infarction, unspecified (principal); I16.1 Hypertensive emergency; G81.94 Hemiplegia, unspecified affecting left nondominant side; I25.810 Atherosclerosis of coronary artery bypass graft(s) without angina pectoris; G31.09 Other frontotemporal neurocognitive disorder; F02.80 Dementia in other diseases classified elsewhere, unspecified severity, without behavioral disturbance, psychotic disturbance, mood disturbance, and anxiety; E78.5 Hyperlipidemia, unspecified; E11.22 Type 2 diabetes mellitus with diabetic chronic kidney disease; I12.9 Hypertensive chronic kidney disease with stage 1 through stage 4 chronic kidney disease, or unspecified chronic kidney disease; N18.30 Chronic kidney disease, stage 3 unspecified; I48.91 Unspecified atrial fibrillation; Z79.01 Long term (current) use of anticoagulants; G93.89 Other specified disorders of brain; I65.21 Occlusion and stenosis of right carotid artery; Z95.1 Presence of aortocoronary bypass graft; Z85.3 Personal history of malignant neoplasm of breast; Z90.10 Acquired absence of unspecified breast and nipple; E87.6 Hypokalemia; D63.1 Anemia in chronic kidney disease; Z11.59 Encounter for screening for other viral diseases; Z74.09 Other reduced mobility
CPT/HCPCS: 36415; 70450; 70551; 76770; 80048; 80053; 80061; 82550; 82553; 82948; 83036; 83735; 83880; 84100; 84443; 84484; 85025; 93005; 93306; 93880; 99284; G0378; J0360; J2060